=== PATIENT | female | born 1995 | race Caucasian/White ===

== ENCOUNTER 2018-07-28 11:41 | Emergency (ER) | payer OTHER ==
[2018-07-28] MEDS ORDERED: NS 1,000 ML IV ONE (12:09)
--- NOTE | 2018-07-28 13:35 | EDPHY ---
H & P Time Seen by Provider: 07/28/18 12:00 HPI/ROS: HPI Diagnosed with fluid Urgent Care. Blood in urine. 23-year-old female by private vehicle. This patient reports flu-like symptoms with nausea, fatigue and body aches for the last 2 days. She was seen at an urgent care today. She was diagnosed with influenza with a positive for influenza assay. She was noted to have hematuria. She was sent to the emergency department for evaluation. She states that her last menstrual period ended a few days ago. She denies any associated soft signs or symptoms. No flank pain. No increased frequency with urination. No painful urination. She currently denies any vaginal bleeding. ROS: Constitutional: No fever, no chills. No weakness. ENT: No sore throat. Respiratory: No cough. No shortness of breath. Gastrointestinal: No abdominal pain, no vomiting, no diarrhea. Nausea as above. Genitourinary: As above. No dysuria or increased frequency with urination. Musculoskeletal: No back pain. As above. Skin: No rashes. Neurological: No headache. No focal weakness or altered sensation. Past medical history: Irritable bowel syndrome, migraine headaches. Social history: She is a student [employer]. No alcohol. Nonsmoker. Physical Exam: General Appearance: Alert, no distress. This patient is responding to questions appropriately and in full sentences. This patient appears well- hydrated and well-nourished. Eyes: Pupils equal and round no pallor or injection. No lid edema, erythema or injection. Gastrointestinal: Abdomen is soft and nontender, no masses, bowel sounds normal. No focal tenderness at McBurney's point. No Gloria sign. Neurological: Motor sensory function is grossly intact. Cranial nerves are normal. Gait is normal. Skin: Warm and dry, no rashes. Musculoskeletal: Neck is supple and nontender. No pain on flexion of her neck. No CVA tenderness on palpation. Extremities are symmetrical. All joints range without pain or impingement. Psychiatric: No agitation. No depression. Database: EKG: Imaging: Procedures: Emergency department course: Triage vital signs reviewed and are normal. Triage vital signs reviewed and are normal. She is afebrile. Urinalysis and basic metabolic panel reviewed. The patient is not . Urinalysis has some blood but otherwise is negative and not consistent with infection. Her renal function is normal. I feel nephritic syndrome is unlikely. This is most likely blood from her resolving menses. The patient feels comfortable going home and I feel she is safe for discharge. I discussed supportive care for influenza. Return to emergency department precautions and follow-up discussed with her. All of her questions were answered. I will have her follow up with a primary care physician for repeat urinalysis at the end of the week. All of her questions were answered. She was discharged home in good condition. Differential Diagnosis: The differential diagnosis on this patient includes but is not limited to urinary tract infection, nephritic syndrome, menses. This represents a partial list of diagnoses considered. These considerations are based on history, physical exam, past history, reassessment and diagnostic testing. Smoking Status: Never smoked Constitutional: Initial Vital Signs Temperature (C) 37.2 C 07/28/18 11:45 Heart Rate 95 07/28/18 11:45 Respiratory Rate 18 07/28/18 11:45 Blood Pressure 121/82 H 07/28/18 11:45 O2 Sat (%) 95 07/28/18 11:45 O2 Delivery Mode Room Air Allergies/Adverse Reactions: amoxicillin Allergy (Verified 07/28/18 11:44) Home Medications: Medication Instructions Recorded Amitriptyline HCl 07/28/18 Lorazepam 07/28/18 Ondansetron Odt [Zofran Odt 4 mg 4 mg PO Q4PRN PRN #10 tab 07/28/18 (*)] Sprintec 28 Day Tablet 07/28/18 Medical Decision Making - Data Points Laboratory Results: Laboratory Results 07/28/18 12:10 07/28/18 07/28/18 12:10 12:10 Sodium 138 mEq/L mEq/L (135-145) Potassium 3.9 mEq/L mEq/L (3.3-5.0) Chloride 101 mEq/L mEq/L (97-110) Carbon Dioxide 22 mEq/l mEq/l (22-31) Anion Gap 15 mEq/L H mEq/L (6-14) BUN 13 mg/dL mg/dL (7-23) Creatinine 0.7 mg/dL mg/dL (0.6-1.0) Estimated GFR > 60 Glucose 92 mg/dL mg/dL (70-100) Calcium 9.9 mg/dL mg/dL (8.5-10.4) Urine Color YELLOW Urine Appearance HAZY Urine pH 5.0 (5.0-7.5) Ur Specific [place] 1.021 (1.002-1.030) Urine Protein NEGATIVE (NEGATIVE) Urine Ketones 1+ H (NEGATIVE) Urine Blood 2+ H (NEGATIVE) Urine Nitrate NEGATIVE (NEGATIVE) Urine Bilirubin NEGATIVE (NEGATIVE) Urine Urobilinogen NEGATIVE EU EU (0.2-1.0) Ur Leukocyte Esterase NEGATIVE (NEGATIVE) Urine RBC 10-15 /hpf H /hpf (0-3) Urine WBC 1-3 /hpf /hpf (0-3) Ur Epithelial Cells TRACE /lpf /lpf (NONE-1+) Urine Bacteria 1+ /hpf H /hpf (NONE SEEN) Urine Mucus 1+ /lpf /lpf (NONE-1+) Urine Glucose NEGATIVE (NEGATIVE) Medications Given: Discontinued Medications Sodium Chloride (Ns) 1,000 mls @ 0 mls/hr IV EDNOW ONE; Wide Open PRN Reason: Protocol Stop: 07/28/18 12:10 Last Admin: 07/28/18 12:11 Dose: 1,000 mls Point of Care Test Results: Urine Collection Date 07/28/18 Collection Time 12:00 HCG Results Negative Departure - Departure Disposition: Home, Routine, Self-Care Clinical Impression: Hematuria, Influenza Condition: Good Instructions: Hematuria (ED), Influenza (ED) Additional Instructions: Read and follow provided instructions. Follow-up with a primary care physician on or Saturday of this week for repeat urinalysis and to establish a primary care physician relationship. I have provided you with 3 different referrals. You will have to call to make an appointment. Ibuprofen dosin mg every 6 hours with meals for the next 3 days only. Take only as needed for pain. Take medication as prescribed for nausea. Consider [id number] cough cold medicines such as NyQuil to use at night for decongestant and to help you sleep. Take as directed. Return to the emergency department for back pain, bleeding, high fever or other serious concerns. Referrals: Roxane Nath MD [[facility] [place] Provider] - As per Instructions Priyanka Segal MD [Medical Doctor] - As per Instructions Silvia Christian MD [Medical Doctor] - As per Instructions Prescriptions: Ondansetron Odt [Zofran Odt 4 mg (*)] 4 mg PO Q4PRN PRN #10 tab PRN Reason: For Nausea & Vomiting
[2018-07-28 14:16] VITALS: BP 114/71
== END 2018-07-28 14:22 | disposition home or self-care (01) ==
DX: R31.9 Hematuria, unspecified (principal); J11.2 Influenza due to unidentified influenza virus with gastrointestinal manifestations; E86.9 Volume depletion, unspecified

== ENCOUNTER → 2019-01-28 | Outpatient (CLI) | payer OTHER | LOC: FIMAGING 09:46 | DX: N93.9 Abnormal uterine and vaginal bleeding, unspecified (principal); R10.9 Unspecified abdominal pain ==